=== PATIENT | female | born 1975 | race Caucasian/White ===

== ENCOUNTER 2023-09-29 17:48 | Emergency (ER) | payer SELFPAY ==
[2023-09-29] MEDS: Ondansetron 4 MG/2 ML SDV IVPUSH ONE (18:24)
[2023-09-29] MEDS: diphenhydrAMINE 50 MG/ML SDV IVPUSH ONE (18:26)
[2023-09-29] MEDS: Ketorolac 15 MG/ML SDV IVPUSH ONE (18:29)
[2023-09-29] MEDS: Sodium Chloride 0.9% 10 ML Syringe FLUSH PRN (18:33)
[2023-09-29] MEDS: Sodium Chloride 0.9% 1,000 ML IV ONE (18:43)
[2023-09-29 19:02] LABS: BASOPHILS ABSOLUTE AUTO 0.03 K/uL (0.00-0.20); BASOPHILS PERCENT AUTO 0.4 % (0.0-2.0); EOSINOPHILS ABSOLUTE AUTO 0.14 K/uL (0.00-0.50); HEMATOCRIT 42.3 % (34.0-46.0); LYMPHOCYTES ABSOLUTE AUTO 1.04 K/uL (0.50-3.50); LYMPHOCYTES PERCENT AUTO 14.5 % (10.0-50.0); MEAN CORPUSCULAR HEMOGLOBIN 30.6 pg (28.2-33.3); MEAN CORPUSCULAR HGB CONC 33.1 g/dL (31.7-36.0); MEAN CORPUSCULAR VOLUME 92.4 fL (84.0-98.0); MONOCYTES ABSOLUTE AUTO 0.53 K/uL (0.00-1.00); MONOCYTES PERCENT AUTO 7.4 % (2.0-14.0); NEUTROPHILS ABSOLUTE AUTO 5.43 K/uL (1.40-7.00); NEUTROPHILS PERCENT AUTO 75.7 % (45.0-80.0); PLATELET COUNT,PLT 178 K/uL (150-350); RED BLOOD CELL COUNT 4.58 M/uL (3.77-5.09); RED CELL DISTRIBUTION WIDTH 12.9 % (11.2-14.1); WHITE BLOOD CELL COUNT,WBC 7.2 K/uL (4.0-10.2)
[2023-09-29 19:22] LABS: ANION GAP 11.9 meq/L (7-15); BLOOD UREA NITROGEN,BUN 15 mg/dL (7-18); CALCIUM 8.7 mg/dL (8.5-10.1); CHLORIDE,CL 107 mmol/L (98-107); CREATININE 0.94 mg/dL (0.51-1.17); ESTIMATED GFR 76 mL/min (>=60); GLUCOSE RANDOM 100 mg/dL (70-99); POTASSIUM,K 3.9 mmol/L (3.5-5.1); SODIUM,NA 141 mmol/L (136-145)
[2023-09-29 19:23] LABS: MAGNESIUM 2.1 mg/dL (1.8-2.4)
== END 2023-09-29 19:45 | disposition home or self-care (01) ==
LOC: LL.ED 17:48
DX: G43.909 Migraine, unspecified, not intractable, without status migrainosus (principal); Z79.899 Other long term (current) drug therapy
CPT/HCPCS: 36415; 80048; 83735; 85025; 96361; 96374; 96375; 99284; J1200; J1885; J2405; J7030; 99283; J3490

== ENCOUNTER 2024-03-22 20:17 | Emergency (ER) | payer BC ==
[2024-03-22] MEDS: Sodium Chloride 0.9% 1,000 ML IV ONE (20:45)
[2024-03-22] MEDS: Ondansetron 4 MG/2 ML SDV IVPUSH ONE (20:56)
[2024-03-22] MEDS: Ketorolac 15 MG/ML SDV IVPUSH ONE (20:59)
[2024-03-22] MEDS: Sodium Chloride 0.9% 10 ML Syringe FLUSH PRN (20:59)
[2024-03-22] MEDS: diphenhydrAMINE 50 MG/ML SDV IVPUSH ONE (21:02)
[2024-03-22] MEDS: SUMAtriptan 6 MG/0.5 ML SDV SUBCUT ONE (21:18)
[2024-03-22] MEDS: traMADol 50 MG Tab PO ONE (21:58)
== END 2024-03-22 22:03 | disposition home or self-care (01) ==
LOC: LL.ED 20:17
DX: G43.909 Migraine, unspecified, not intractable, without status migrainosus (principal); Z79.899 Other long term (current) drug therapy
CPT/HCPCS: 96361; 96372; 96374; 96375; 99283; A9270; J1200; J1885; J2405; J3030; J7030; J3490

== ENCOUNTER 2025-01-19 13:49 | Emergency (ER) | payer BC ==
[2025-01-19] MEDS: Sodium Chloride 0.9% 1,000 ML IV ONE (14:39)
[2025-01-19] MEDS: Ondansetron 4 MG/2 ML SDV IVPUSH ONE (14:40)
[2025-01-19] MEDS: diphenhydrAMINE 50 MG/ML SDV IVPUSH ONE (14:42)
[2025-01-19] MEDS: Ketorolac 30 MG/ML SDV IVPUSH ONE (14:44)
[2025-01-19] MEDS: SUMAtriptan 6 MG/0.5 ML SDV SUBCUT ONE (15:44)
[2025-01-19] MEDS: traMADol 50 MG Tab PO ONE (15:47)
== END 2025-01-19 16:19 | disposition home or self-care (01) ==
LOC: SUPCPDRO 13:49 → LL.ED 13:49
DX: G43.909 Migraine, unspecified, not intractable, without status migrainosus (principal); Z79.899 Other long term (current) drug therapy
CPT/HCPCS: 96361; 96372; 96374; 96375; 99283; A9270; J1200; J1885; J2405; J3030; J7030